=== PATIENT | female | born 1990 | race Two or more races ===

== ENCOUNTER 2020-07-22 03:20 | Outpatient (CLI) | payer OTHER ==
[~2020-07-22] VITALS: Ht 154.9 cm; Wt 75.9 kg
== END 2020-07-22 04:30 | disposition home or self-care (01) ==
LOC: LDOP 03:20
PROVIDERS: ATTEND Obstetrics & Gynecology Maternal & Fetal Medicine
DX: O36.8130 Decreased fetal movements, third trimester, not applicable or unspecified (principal); Z3A.38 38 weeks gestation of pregnancy
CPT/HCPCS: 59025

== ENCOUNTER 2020-07-25 05:51 | Inpatient (IN) | payer OTHER ==
[~2020-07-25] VITALS: Ht 154.9 cm; Wt 75.9 kg
[2020-07-25 06:18] VITALS: BP 106/70
[2020-07-25] MEDS ORDERED: TERBUTALINE 1 MG/ML, 1ML IVPush PRN (07:00)
[2020-07-25] MEDS ORDERED: PENICILLIN GK 5,000,000 UNITS in DEXTROSE 5% 100 ML IVPB ONE (07:00)
[2020-07-25] MEDS ORDERED: ALUMINUM/MAG/SIMETHICONE 30 ML UDC PO PRN (07:00)
[2020-07-25] MEDS ORDERED: OXYTOCIN 30U/ 0.9% NaCL 500ML 500 ML IV ONE (07:00)
[2020-07-25] MEDS ORDERED: METOCLOPRAMIDE 5 MG/ML, 2ML IVPush PRN (07:00)
[2020-07-25] MEDS ORDERED: ONDANSETRON 2MG/ML, 2ML IVPush PRN (07:00)
[2020-07-25] MEDS ORDERED: SODIUM CITRATE/CITRIC ACID 30 ML UDC PO PRN (07:00)
[2020-07-25] MEDS ORDERED: FENTANYL PF 100 MCG/2ML IV PRN (07:00)
[2020-07-25] MEDS ORDERED: TERBUTALINE 1 MG/ML, 1ML SQ PRN (07:00)
[2020-07-25] MEDS: D5%-LACTATED RINGERS 1,000 ML IV SCH ×3 (07:00→20:21)
[2020-07-25] MEDS ORDERED: FENTANYL PF 100 MCG/2ML IVPush PRN (07:00)
[2020-07-25] MEDS ORDERED: LORA10CA PO (07:19)
[2020-07-25] MEDS ORDERED: FLUT9.9S NAS (07:19)
[2020-07-25] MEDS ORDERED: PREN1TAB79 PO (07:19)
[2020-07-25] MEDS ORDERED: NEWBORN KIT ONE (07:32)
[2020-07-25] MEDS ORDERED: TERBUTALINE 1 MG/ML, 1ML ONE (07:33)
[2020-07-25] MEDS ORDERED: LIDOCAINE 1%, 20ML ONE (07:33)
[2020-07-25] MEDS ORDERED: MISOPROSTOL 200 MCG TABLET ONE (07:33)
[2020-07-25 08:19] LABS: BASOPHILS % (AUTO) 1 % (0-1); EOSINOPHILS % (AUTO) 1 % (1-7); LYMPHOCYTES % (AUTO) 23 % (22-44); MEAN CORPUSCULAR HEMOGLOBIN 30.4 pg (27.0-34.8); MEAN CORPUSCULAR HGB CONC 33.3 g/dL (32.4-35.8); MEAN PLATELET VOLUME 9.7 fL (7.4-10.4); MONOCYTES % (AUTO) 5 % (2-9); NEUTROPHILS % (AUTO) 70 % (42-75); PLATELET COUNT 249 x10^3/uL (130-400); RED BLOOD COUNT 4.03 x10^6/uL (3.82-5.3); RED CELL DISTRIBUTION WIDTH 13.7 % (9.6-15.2)
[2020-07-25 08:22] LABS: MD NO
[2020-07-25] MEDS ORDERED: OXYTOCIN 30U/ 0.9% NaCL 500ML 500 ML ONE ×2 (12:44→22:21)
[2020-07-25] MEDS ORDERED: OXYTOCIN 30U/ 0.9% NaCL 500ML 500 ML IV PRN (13:00)
[2020-07-25] MEDS: LACTATED RINGERS 1,000 ML IV SCH ×3 (15:00→23:00)
[2020-07-25] MEDS: PENICILLIN GK 2,500,000 UNITS in DEXTROSE 5% 100 ML IVPB SCH ×4 (15:00→23:00)
[2020-07-25] MEDS ORDERED: BUPIVACAINE 0.25% ONE (17:04)
[2020-07-25] MEDS ORDERED: FENTANYL/BUPIV./NS/PF 250 ML EPIDCONT ONE (17:05)
[2020-07-25] MEDS ORDERED: LACTATED RINGERS 1,000 ML IV SCH (17:30)
[2020-07-25] MEDS ORDERED: EPHEDRINE 50 MG/ML, 1ML IVPush PRN (17:30)
[2020-07-25] MEDS ORDERED: FENTANYL/BUPIV./NS/PF 250 ML EPIDCONT SCH (17:30)
[2020-07-25] MEDS ORDERED: LACTATED RINGERS 1,000 ML IVBOLUS PRN (17:30)
[2020-07-25 20:42] VITALS: BP 123/77
[2020-07-26] MEDS ORDERED: METHYLERGONOVINE 0.2 MG/ML IM PRN
[2020-07-26] MEDS ORDERED: SIMETHICONE 80 MG CHEW TAB PO PRN
[2020-07-26] MEDS ORDERED: DIPH,PERTUSS(ACELL),TET VAC/PF NC IM-VACC PRN
[2020-07-26] MEDS ORDERED: OXYcodone/APAP 5/325MG TABLET PO PRN
[2020-07-26] MEDS ORDERED: ACETAMINOPHEN 325 MG TABLET PO PRN ×2
[2020-07-26] MEDS ORDERED: CARBOPROST TROMETHAMINE 250 MCG/ML, 1ML IM PRN
[2020-07-26] MEDS ORDERED: MISOPROSTOL 200 MCG TABLET PR PRN
[2020-07-26] MEDS: OXYTOCIN 30U/ 0.9% NaCL 500ML 500 ML IV SCH ×3 (00:02→20:00)
[2020-07-26 02:10] VITALS: BP 115/70
[2020-07-26] MEDS: IBUPROFEN 600 MG TABLET PO PRN ×4 (02:19→22:37)
[2020-07-26 04:20] VITALS: BP 118/71
[2020-07-26] MEDS: OXYcodone/APAP 5/325MG TABLET PO PRN ×4 (05:42→20:31)
[2020-07-26] MEDS: LACTATED RINGERS 1,000 ML IV SCH ×3 (07:00→23:00)
[2020-07-26 08:24] LABS: BASOPHILS % (AUTO) 0 % (0-1); EOSINOPHILS % (AUTO) 0 % (1-7); LYMPHOCYTES % (AUTO) 14 % (22-44); MEAN CORPUSCULAR HEMOGLOBIN 30.4 pg (27.0-34.8); MEAN CORPUSCULAR HGB CONC 33.2 g/dL (32.4-35.8); MEAN PLATELET VOLUME 9.2 fL (7.4-10.4); MONOCYTES % (AUTO) 4 % (2-9); NEUTROPHILS % (AUTO) 82 % (42-75); PLATELET COUNT 235 x10^3/uL (130-400); RED BLOOD COUNT 3.77 x10^6/uL (3.82-5.3); RED CELL DISTRIBUTION WIDTH 13.9 % (9.6-15.2)
[2020-07-26 08:30] VITALS: BP 106/63
[2020-07-26 08:48] LABS: MD SCAN
[2020-07-26] MEDS: PRENATAL VIT/IRON/FA 1 EACH TABLET PO SCH (08:56)
[2020-07-26] MEDS: DOCUSATE 100 MG CAPSULE PO PRN ×2 (08:56→20:31)
[2020-07-26 12:06] VITALS: BP 113/55
[2020-07-26 16:20] VITALS: BP 110/72
[2020-07-26 19:51] VITALS: BP 127/83
[2020-07-27] MEDS: OXYcodone/APAP 5/325MG TABLET PO PRN ×2 (03:39→07:47)
[2020-07-27] MEDS: IBUPROFEN 600 MG TABLET PO PRN (04:49)
[2020-07-27] MEDS: OXYTOCIN 30U/ 0.9% NaCL 500ML 500 ML IV SCH (06:00)
[2020-07-27] MEDS: LACTATED RINGERS 1,000 ML IV SCH (07:00)
[2020-07-27 07:45] VITALS: BP 108/62
[2020-07-27] MEDS: PRENATAL VIT/IRON/FA 1 EACH TABLET PO SCH (07:47)
[2020-07-27] MEDS: DOCUSATE 100 MG CAPSULE PO PRN (07:47)
[2020-07-27] MEDS ORDERED: OXYC-302 PO (08:48)
[2020-07-27] MEDS ORDERED: IBUP-1222 PO ×2 (08:48→08:49)
== END 2020-07-27 10:10 | disposition home or self-care (01) | DRG 807 ==
LOC: LDOP 05:51 → LDIP 06:53 → 2NW 07-26 02:03
PROVIDERS: ADMIT Obstetrics & Gynecology Maternal & Fetal Medicine; ATTEND Obstetrics & Gynecology Maternal & Fetal Medicine
PROC: 10E0XZZ Delivery of Products of Conception, External Approach (ICD-10-PCS; principal; 2020-07-26)
PROC: 10907ZC Drainage of Amniotic Fluid, Therapeutic from Products of Conception, Via Natural or Artificial Opening (ICD-10-PCS; 2020-07-26)
PROC: 3E0R3BZ Introduction of Anesthetic Agent into Spinal Canal, Percutaneous Approach (ICD-10-PCS; 2020-07-26)
PROC: 00HU33Z Insertion of Infusion Device into Spinal Canal, Percutaneous Approach (ICD-10-PCS; 2020-07-26)
PROC: 0UQMXZZ Repair Vulva, External Approach (ICD-10-PCS; 2020-07-26)
DX: O99.824 Streptococcus B carrier state complicating childbirth (principal); Z37.0 Single live birth; O71.82 Other specified trauma to perineum and vulva; Z3A.39 39 weeks gestation of pregnancy; Z20.828 Contact with and (suspected) exposure to other viral communicable diseases
CPT/HCPCS: 36415; J7121; 84112; 85025; 86592; 86850; 86900; 87635; G0378; J2540; J2590; J3010; J7120